=== PATIENT | female | born 1955 | race Caucasian/White ===

== ENCOUNTER → 2021-06-08 12:23 | Outpatient (CLI) | payer OTHER, SELFPAY ==
--- NOTE | 2021-06-08 12:25 | DI.US.S_ITS ---
PROCEDURE: US PERIPH VENOUS UP EXTREM RT INDICATIONS: RIGHT WRIST PAIN. INFUSION 2 WEEKS AGO. TECHNIQUE: Real-time imaging, as well as color and pulse Doppler interrogation, was performed of the right upper extremity deep veins from the inferior neck to the antecubital fossa. COMPARISON: None. FINDINGS: The internal jugular vein, visualized portions of the subclavian vein, axillary, and brachial veins are free of intraluminal thrombus. Where physically possible, the veins are normally compressible. Color and pulse Doppler demonstrate normal intraluminal flow, with expected phasicity and pulsatility. Additional scanning of the cephalic and basilic veins of the superficial system demonstrate normal compressibility, without thrombus. No soft tissue mass or fluid collection is seen in right anterolateral wrist region at patient's reported area of pain and lump. IMPRESSION: No evidence of DVT is seen in visualized right upper extremity veins. Dictated by: Jaime Bowman M.D. on 06/08/2021 at 13:38 Approved by: Jaime Bowman M.D. on 06/08/2021 at 13:40
== END ==
PROVIDERS: PCP Internal Medicine; Referring Provider Physician Assistant; Visit Provider Physician Assistant
DX: M79.601 Pain in right arm (principal)
CPT/HCPCS: 93971

== ENCOUNTER → 2024-11-19 15:27 | Outpatient (CLI) | payer MEDICARE, OTHER, SELFPAY ==
--- NOTE | 2024-11-19 | DI.RAD.S_ITS ---
PROCEDURE: XR FOOT LT MIN 3V INDICATIONS: FOOT PAIN TECHNIQUE: 3 views of the foot were acquired. COMPARISON: None. FINDINGS: Bones: There may be a very subtle transverse fracture along the sub cortex of the dorsal navicular on the lateral view. Please correlate point tenderness and any history of trauma. Mild cortical thickening of the dorsal talar neck may predispose to anterior impingement on ankle dorsiflexion. Joints: Mild degeneration in the 1st MTP , 2nd through 5th interphalangeal joints and throughout the midfoot . Soft tissues: No soft tissue abnormality. IMPRESSION: Potential nondisplaced transverse fracture through the subcortex of the dorsal navicular. If there is no history of trauma or point tenderness in this area then this should be dismissed as artifact. If there is point tenderness in this area consider immobilization repeat film in 10-14 days. Dictated by: Lucas Zarate M.D. on 11/22/2024 at 9:09 Approved by: Lucas Zarate M.D. on 11/22/2024 at 9:13
--- NOTE | 2024-11-19 | DI.RAD.S_ITS ---
PROCEDURE: XR FOOT RT MIN 3V INDICATIONS: FOOT PAIN TECHNIQUE: 3 views of the foot were acquired. COMPARISON: None. 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 Soft tissues: No soft tissue abnormality. IMPRESSION: Chronic findings as described Dictated by: Lucas Zarate M.D. on 11/22/2024 at 9:08 Approved by: Lucas Zarate M.D. on 11/22/2024 at 9:09
== END ==
PROVIDERS: PCP Family Medicine; Referring Provider Family Medicine; Visit Provider Family Medicine
DX: M79.672 Pain in left foot (principal); M79.671 Pain in right foot; Q66.71 Congenital pes cavus, right foot; M89.9 Disorder of bone, unspecified
CPT/HCPCS: 73620; 73630

== ENCOUNTER → 2024-12-01 10:35 | Outpatient (CLI) | payer MEDICARE, OTHER, SELFPAY ==
--- NOTE | 2024-12-01 10:37 | DI.RAD.S_ITS ---
PROCEDURE: XR FOOT RT MIN 3V INDICATIONS: F/U TECHNIQUE: 3 views of the foot were acquired. COMPARISON: [facility], , XR FOOT RT MIN 3V, 11/19/2024, 15:42. FINDINGS: Bones: No fractures or dislocations. No suspicious bony lesions. Mild osteoarthritic changes are noted throughout right foot. Well-defined plantar and dorsal calcaneal enthesophytes are seen. Soft tissues: No tibiotalar joint effusion. Achilles tendon appears normal. IMPRESSION: No significant changes from recent study. No acute fracture or dislocation. Mild right foot joint osteoarthritis. Well-defined calcaneal enthesophytes. Dictated by: Jaime Bowman M.D. on 12/01/2024 at 16:33 Approved by: Jaime Bowman M.D. on 12/01/2024 at 16:34
== END ==
PROVIDERS: PCP Family Medicine; Referring Provider Family Medicine; Visit Provider Family Medicine
DX: M19.071 Primary osteoarthritis, right ankle and foot (principal); M77.31 Calcaneal spur, right foot; M79.671 Pain in right foot
CPT/HCPCS: 73630

== ENCOUNTER → 2024-12-29 10:36 | Outpatient (CLI) | payer MEDICARE, OTHER, SELFPAY ==
--- NOTE | 2024-12-29 10:40 | DI.RAD.S_ITS ---
PROCEDURE: XR FOOT LT MIN 3V INDICATIONS: FOOT PAIN TECHNIQUE: 3 views of the foot were acquired. COMPARISON: [facility], CR, XR FOOT RT MIN 3V, 12/01/2024, 10:38. FINDINGS: Bones: There is mild spurring from the dorsal cortex of the talar neck. Mild pes planus noted. 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 IMPRESSION: Chronic findings as described Dictated by: Lucas Zarate M.D. on 12/30/2024 at 10:44 Approved by: Lucas Zarate M.D. on 12/30/2024 at 10:45
== END ==
PROVIDERS: PCP Family Medicine; Referring Provider Family Medicine; Visit Provider Family Medicine
DX: M25.775 Osteophyte, left foot (principal); Q66.89 Other specified congenital deformities of feet; M79.672 Pain in left foot; M79.671 Pain in right foot
CPT/HCPCS: 73630

== ENCOUNTER → 2025-05-12 10:56 | Outpatient (CLI) | payer MEDICARE, OTHER, SELFPAY ==
[2025-05-12 12:54] LABS: Alanine Aminotransferase 21 IU/L (<35); Albumin 4.5 g/dL (3.5-5.0); Albumin Globulin Ratio 1.6 (1.0-2.8); Alkaline Phosphatase 75 U/L (38-126); Blood Urea Nitrogen 17 mg/dL (7-17); Calcium 8.6 mg/dL (8.4-10.2); Carbon Dioxide 26 mmol/L (22-32); Chloride 103 mmol/L (98-107); Cholesterol 223 mg/dL (140-199); Estimated Glomerular Filt Rate > 60 mL/min (>60); Globulin 2.8 g/dL (1.7-4.1); Glucose 85 mg/dL (70-99); HDL Cholesterol 86 mg/dL (40-60); HEMOLYSIS < 15 (0-50); Magnesium 2.2 mg/dL (1.6-2.3); Potassium 4.7 mmol/L (3.4-5.1); Sodium 138 mmol/L (137-145); Total Protein 7.3 g/dL (6.3-8.2); Triglycerides 60 mg/dL (35-150)
== END ==
PROVIDERS: PCP Family Medicine; Referring Provider Family Medicine; Visit Provider Family Medicine
DX: Z00.00 Encounter for general adult medical examination without abnormal findings (principal); R25.2 Cramp and spasm; E78.2 Mixed hyperlipidemia; I25.10 Atherosclerotic heart disease of native coronary artery without angina pectoris; M79.671 Pain in right foot; M79.672 Pain in left foot; M85.89 Other specified disorders of bone density and structure, multiple sites; R20.2 Paresthesia of skin
CPT/HCPCS: 36415; 80053; 80061; 83735

== ENCOUNTER → 2025-06-08 13:24 | Outpatient (CLI) | payer MEDICARE, OTHER, SELFPAY ==
--- NOTE | 2025-06-08 13:33 | DI.NM.S_ITS ---
PROCEDURE: NM MADY PERF SPECT REST & STR
--- NOTE | 2025-06-08 13:54 | DI.RAD.S_ITS ---
PROCEDURE: XR SACRUM COCCYX MIN 2V
== END ==
PROVIDERS: PCP Family Medicine; Referring Provider Family Medicine; Visit Provider Family Medicine
DX: I25.10 Atherosclerotic heart disease of native coronary artery without angina pectoris (principal); M53.3 Sacrococcygeal disorders, not elsewhere classified; R07.9 Chest pain, unspecified; E78.2 Mixed hyperlipidemia; R42 Dizziness and giddiness
CPT/HCPCS: 72220; 78452; 93017; A9502